=== PATIENT | male | born 1980 | race African-American/Black ===

== ENCOUNTER 2017-12-31 13:39 | Emergency (ER) | payer BC, OTHER | END 2017-12-31 16:24 | disposition home or self-care (01) | LOC: D.ER 13:39 | DX: T22.211A Burn of second degree of right forearm, initial encounter (principal); T31.0 Burns involving less than 10% of body surface; X10.2XXA Contact with fats and cooking oils, initial encounter; Y93.G3 Activity, cooking and baking; Y92.010 Kitchen of single-family (private) house as the place of occurrence of the external cause; F17.200 Nicotine dependence, unspecified, uncomplicated ==